=== PATIENT | female | born 1995 | race Caucasian/White ===

== ENCOUNTER 2017-08-10 11:35 | Emergency (ER) | payer OTHER ==
[~2017-08-10 11:35] MED LIST: Iopamidol 370 76% 100 ML VIAL ONE
[2017-08-10 12:11] LABS: Bilirubin Negative (Negative); Blood, Urine Negative (Negative); Clarity Clear (Clear); Glucose, Urine (Dipstick) Negative (Negative); Leukocyte Negative (Negative); Nitrite Negative (Negative); Protein, Urine (Dipstick) Negative (Neg-Trace); Specific Gravity, Urine 1.025 (1.005-1.030); Urobilinogen 0.2 mg/dL (0.2-1.0); pH, Urine 5.5 (5.0-9.0)
[2017-08-10 12:14] LABS: Pregnancy Test - Urine (BHCG) Negative (Negative); Pregu Control Background? CLEAR/WHITE (CLR/WHITE); Pregu Control Bar Appear? YES (CONTROL BAR); Specific Gravity 1.025 (1.002-1.036)
[2017-08-10 12:49] LABS: #Basophils 0.1 thou/uL (0.0-0.2); #Eosinphils 0.3 thou/uL (0.0-0.7); #Lymphocytes 1.3 thou/uL (1.20-3.40); #Monocytes 0.4 thou/uL (0.11-0.59); #Neutrophils 5.9 thou/uL (1.40-6.50); %Eosinophils 3.3 % (0.0-10.0); %Lymphocytes 16.5 % (21.0-51.0); %Monocytes 5.5 % (0.0-10.0); %Neutrophils 73.7 % (42.0-75.0); Hemoglobin 12.7 g/dL (12.0-16.0); Mean Corpuscular HGB CONC 33.9 g/dL (32.0-36.0); Mean Corpuscular Hemoglobin 29.6 pg (27.0-31.0); Mean Corpuscular Volume 87.5 fl (81.0-99.0); Mean Platelet Volume 7.1 fL (7.4-10.4); Platelet Count 361 thou/uL (130-400); RBC Distribution Width 10.2 % (11.5-14.5); Red Blood Cell (RBC) Count 4.29 mill/uL (4.20-5.40)
[2017-08-10 13:03] LABS: ALT (SGPT) 14 U/L (8-55); AST (SGOT) 18 U/L (5-34); Albumin 3.7 g/dL (3.5-5.0); Alkaline Phosphatase 75 U/L (40-150); Anion Gap 15 mmol/L (10-20); BUN (Urea Nitrogen) 9 mg/dL (7.0-18.7); Bilirubin, Total 0.2 mg/dL (0.2-1.2); Calc. Creatinine Clearance 0 mL/min (70-130); Calcium 9.4 mg/dL (7.8-10.44); Carbon Dioxide 25 mmol/L (22-29); Chloride 104 mmol/L (98-107); Estimated GFR-MDRD Greater than 90; Globulin 3.8 g/dL (2.4-3.5); Glucose 101 mg/dL (70-105); Potassium 4.3 mmol/L (3.5-5.1); Protein, Total 7.5 g/dL (6.0-8.3); Sodium 140 mmol/L (136-145)
[2017-08-10] MEDS ORDERED: Lidocaine Viscous Sol 2% 15 ml UD Cup ONE (13:34)
[2017-08-10] MEDS ORDERED: Ondansetron ODT 4 MG TAB ONE (13:34)
[2017-08-10] MEDS ORDERED: Mag-Al Plus 1200 MG/1200 MG/120 MG/30 ML UDCUP ONE (13:35)
[2017-08-10 15:02] LABS: MONO NEGATIVE CONTROL ZONE White (Negative) (White); MONO POSITIVE CONTROL Pink Line (Positive) (PINK/RED); Mononucleosis NEGATIVE (NEGATIVE)
[2017-08-10] MEDS ORDERED: HYDROcodone/Acetaminophen 10/325 mg Tablet ONE (15:14)
--- NOTE | 2017-08-10 15:14 | RAD ---
TWO VIEWS OF THE ABDOMEN: INDICATIONS: Diffuse abdominal pain, left greater than right. FINDINGS: The bowel gas pattern is unobstructed. The lung bases are clear. No suspicious calcifications are e vident. No acute osseous abnormality is evident. IMPRESSION: No acute abnormality. POS: [facility]
--- NOTE | 2017-08-10 18:49 | CT ---
ABDOMEN AND PELVIS CT WITH CONTRAST: 08/10/17 INDICATION: Left abdominal pain. FINDINGS: There is inflammatory fat stranding of the low abdomen and pelvis. There is a linear nonspecific dens ity along the inferior left pericolic gutter which is lateral and inferior to the sigmoid colon. A no rmal caliber, partially air filled appendix is seen within the right lower quadrant adjacent the ceca l apex. There is heterogeneity and prominence of the uterus and adnexa bilaterally as well as wall t hickening of portions of the urinary bladder with adjacent, perivesicular fat stranding. There is sof t tissue prominence of the lower uterine segment/cervix. No small bowel obstruction is identified. So lid abdominal viscera reveals no definite acute process. There is mild fullness of each renal collect ing system without overt hydronephrosis. Imaged lung bases are clear where visualized. No acute osseo us pathology. There is no evidence of disseminated free air. There are scattered borderline sized jeff al, mesenteric lymph nodes, nonspecific. IMPRESSION: 1. Inflammatory fat stranding of the low abdomen and pelvis nonspecific as above. There is a harley ear density along the inferior left pericolic gutter descending into the left lateral hemipelvis bin cent the sigmoid colon, not conforming to expected confines of bowel. This could relate to an adnexal ligament. Recommend clinical correlation to exclude evidence of pelvic inflammatory disease. Possibi lity of distally located enterocolitis is not excluded. 2. Mild wall prominence of the urinary bladder may relate to associated cystitis. Correlate with urinary laboratory values. 3. Pelvic ultrasound may also be performed for continued assessment. 4. Normal caliber partially air filled appendix of right lower quadrant is seen. 5. There is ill-defined added density of the low abdomen ventrally which may relate to multiple unopacified loops of small bowel. This is difficult to further discern on the basis of this exam and dedicated imaging followup would prove useful for further assessment. POS: [facility]
== END 2017-08-10 18:00 | disposition home or self-care (01) ==
LOC: SCSER 11:35
DX: K52.9 Noninfective gastroenteritis and colitis, unspecified (principal)
CPT/HCPCS: 36415; 74020; 74176; 80053; 81003; 81025; 85025; 86308; 96372; Q0162